=== PATIENT | male | born 1935 | race Caucasian/White ===

== ENCOUNTER 2016-11-12 16:53 | Inpatient (IN) | payer MEDICARE, BC ==
[~2016-11-12] VITALS: Wt 75.9 kg
[~2016-11-12 16:53] MED LIST: ASPIRIN 32325 MG/TAB PO; ASPIRIN 81M81 MG/TA2 PO; BACITRACIN TOPIC1 TU TOP; BACTRIM DS 8001 TAB PO; CENTRUM SILVER1 TA1 PO; COLACE 100100 MG/CAP PO; FISH OIL 1000MG1 CAP PO; FLOMAX 0.40.4 MG/CAP PO; HYDROCORTISONE30 G3 TP; IMDUR 30MG30 MG/TAB PO; LIPITOR 80MG80 MG PO; MIRALAX PA17 GM/Dose PO; NITROSTAT0.4 MG/TAB SL; PERCOCET 325 MG1 TA2 PO; PLAVIX 75MG TAB75 MG PO; TENORMIN 2525 MG/TAB PO; TYLENOL 325MG325 MG PO; ULTRAM 50MG TAB50 MG PO; ZESTRIL 5MG5 MG PO; ZOCOR 20MG20 MG PO; ZOFRAN8 MG PO
[2016-11-12 17:56] LABS: BASO # 0.1 (0.0-0.2); BASO % 0.7 % (0.0-2.0); EOS # 0.6 (0.0-0.7); EOS % 6.1 % (0-4.0); GRAN # 4.7 (1.4-6.5); GRAN % 51.5 % (42.2-75.2); HEMATOCRIT 38.6 % (42.0-52.0); HEMOGLOBIN 12.5 g/dl (13.5-18.0); LYMPH # 2.9 (1.2-3.4); LYMPH % 31.6 % (20.0-51.0); MEAN CELL VOLUME 95 fl (80.0-100.0); MEAN CORPUSCULAR HEMOGLOBIN 31 pg (27.0-31.0); MEAN CORPUSCULAR HGB CONC 32 g/dl (33.0-37.0); MEAN PLATELET VOLUME 10.8 fl (7.4-10.4); MONO # 0.9 (0.1-0.6); MONO % 9.9 % (1.7-9.3); PLATELET COUNT 198 K/mm3 (130-400); RED BLOOD COUNT 4.05 M/mm3 (4.20-5.60); REDCELL DISTRIBUTION WIDTH-CV 13.7 % (11.5-14.5); WHITE BLOOD COUNT 9.2 K/mm3 (4.8-10.8)
[2016-11-12 18:02] LABS: ADJUSTED CALCIUM 9.6 mg/dL (8.4-10.2); ALBUMIN 3.6 gm/dL (3.5-5.0); BILIRUBIN,TOTAL 0.7 mg/dL (0.0-1.0); CALCIUM 9.3 mg/dL (8.4-10.2); CREATININE, serum 0.99 mg/dL (0.66-1.25); POTASSIUM 4.5 mmol/L (3.4-5.0); TOTAL PROTEIN 6.9 gm/dL (6.4-8.2)
[2016-11-12 18:51] LABS: PH 5 (5-8); SQUAMOUS EPITHELIAL None Seen /hpf; URINE APPEARANCE Clear; URINE BACTERIA None Seen /hpf; URINE BILIRUBIN Negative (NEGATIVE); URINE BLOOD Negative (NEGATIVE); URINE COLOR Yellow; URINE GLUCOSE Negative (NEGATIVE); URINE KETONE Negative (NEGATIVE); URINE RBC None Seen /hpf; URINE UROBILINOGEN Negative (NEGATIVE); URINE WBC 0-2 /hpf
[2016-11-12] MEDS ORDERED: LIORESAL 1010 MG/TAB PO (20:52)
[2016-11-12] MEDS ORDERED: ZOLOFT 25MG25 MG PO (20:53)
[2016-11-12 21:25] VITALS: BP 118/70; PULSE 84; TEMP 98.9
[2016-11-12 23:55] VITALS: BP 149/71; PULSE 50; TEMP 98
[2016-11-13 04:09] VITALS: BP 146/94; PULSE 52; TEMP 98.5
[2016-11-13 08:46] VITALS: BP 149/71; PULSE 52; TEMP 97.5
[2016-11-13] MEDS ORDERED: NEURONTIN400 MG/CAP PO (10:39)
[2016-11-13] MEDS ORDERED: MAALOX MAX + ANT1 ML PO (10:42)
[2016-11-13 11:36] VITALS: BP 124/61; PULSE 57; TEMP 98
[2016-11-13 16:14] VITALS: BP 133/78; PULSE 76; TEMP 97.7
[2016-11-13 19:56] VITALS: BP 131/55; PULSE 64; TEMP 99.1
[2016-11-14 00:24] VITALS: BP 140/66; PULSE 54; TEMP 98.1
[2016-11-14 04:38] VITALS: BP 147/74; PULSE 58; TEMP 98.4
[2016-11-14 08:29] VITALS: BP 140/87; PULSE 55; TEMP 97.9
[2016-11-14] MEDS ORDERED: ZOLOFT 25MG25 MG PO (10:39)
[2016-11-14] MEDS ORDERED: LOVENOX 4040 MG/0.4 SQ (10:39)
[2016-11-14] MEDS ORDERED: LIORESAL 1010 MG/TAB PO (10:39)
[2016-11-14 10:44] VITALS: BP 140/87; PULSE 55; TEMP 97.9
[2016-11-14 12:39] VITALS: BP 157/72; PULSE 66; TEMP 98.1
== END 2016-11-14 15:13 | DRG 57 ==
LOC: COL.ER 16:53 → MEDICAL 19:17
PROVIDERS: Emergency Medicine
DX: I69.851 Hemiplegia and hemiparesis following other cerebrovascular disease affecting right dominant side (principal); I10 Essential (primary) hypertension; I25.10 Atherosclerotic heart disease of native coronary artery without angina pectoris; Z95.5 Presence of coronary angioplasty implant and graft
CPT/HCPCS: 99222-AI; 99232-AI; 99239; A9585; G0378; G8978-GP; G8979-GP; G8996-GN; G8997-GN; J1650; J7030

== ENCOUNTER 2016-11-14 11:44 | Inpatient (IN) | payer MEDICARE, BC ==
[~2016-11-14] VITALS: Ht 180.3 cm; Wt 78.6 kg
[~2016-11-14 11:44] MED LIST changes: +LIORESAL 1010 MG/TAB PO; +LOVENOX 4040 MG/0.4 SQ; +MAALOX MAX + ANT1 ML PO; +NEURONTIN400 MG/CAP PO; +ZOLOFT 25MG25 MG PO
[2016-11-14 15:22] VITALS: BP 151/73; PULSE 53; TEMP 98.1
[2016-11-14 17:35] VITALS: BP 151/73; BP 159/62; PULSE 53; PULSE 54; TEMP 97.9; TEMP 98
[2016-11-15 03:04] VITALS: BP 130/71; PULSE 47; TEMP 98.3
[2016-11-15 18:31] VITALS: BP 125/62; PULSE 58; TEMP 98.6
[2016-11-16 06:00] VITALS: BP 140/58; PULSE 50; TEMP 98.4
[2016-11-16 17:56] VITALS: BP 121/61; PULSE 59; TEMP 98.1
[2016-11-17 04:54] VITALS: BP 149/72; PULSE 47; TEMP 97.9
[2016-11-17 16:13] VITALS: BP 132/64; PULSE 56; TEMP 98.7
[2016-11-18 07:10] VITALS: BP 138/62; PULSE 51; TEMP 98.4
[2016-11-18 17:36] VITALS: BP 132/67; PULSE 60; TEMP 98
[2016-11-19 06:00] VITALS: BP 139/64; PULSE 50; TEMP 97.2
[2016-11-19 17:36] VITALS: BP 112/59; PULSE 60; TEMP 98.6
[2016-11-20 06:15] VITALS: BP 138/75; PULSE 46; TEMP 97.4
[2016-11-20 16:36] VITALS: BP 132/48; PULSE 55; TEMP 97.7
[2016-11-21 03:12] VITALS: BP 118/63; PULSE 52; TEMP 98.1
[2016-11-21 15:43] VITALS: BP 132/57; PULSE 58; TEMP 98.6
[2016-11-22 04:13] VITALS: BP 140/56; PULSE 50; TEMP 97.8
[2016-11-22 16:29] VITALS: BP 148/64; PULSE 79; TEMP 97.8
[2016-11-23 04:27] VITALS: BP 128/62; PULSE 75; TEMP 97.6
[2016-11-23 17:10] VITALS: BP 131/66; PULSE 60; TEMP 98
[2016-11-24 05:42] VITALS: BP 135/70; PULSE 46; TEMP 97.5
[2016-11-24 16:30] VITALS: BP 123/56; PULSE 56; TEMP 97
[2016-11-25 05:57] VITALS: BP 119/62; PULSE 48; TEMP 97.4
[2016-11-25 16:11] VITALS: BP 141/61; PULSE 59; TEMP 97
[2016-11-26 04:04] VITALS: BP 130/59; PULSE 47; TEMP 97.5
[2016-11-26 16:25] VITALS: BP 115/66; PULSE 53; TEMP 97.3
[2016-11-27 03:58] VITALS: BP 134/70; PULSE 84; TEMP 97.5
[2016-11-27 16:16] VITALS: BP 137/66; PULSE 59; TEMP 98.6
[2016-11-28 05:23] VITALS: BP 136/80; PULSE 53; TEMP 98.5
[2016-11-28 17:23] VITALS: BP 132/95; PULSE 52; TEMP 97.9
[2016-11-29 04:05] VITALS: BP 117/52; PULSE 47; TEMP 98.4
[2016-11-29 11:56] VITALS: BP 109/61; PULSE 53; TEMP 97.8
[2016-11-29 17:38] VITALS: BP 159/63; PULSE 60; TEMP 98.9
[2016-11-30 03:54] VITALS: BP 137/71; PULSE 48; TEMP 98.1
== END 2016-11-30 13:37 | disposition home health service (06) | DRG 948 ==
DX: R53.81 Other malaise (principal); I69.361 Other paralytic syndrome following cerebral infarction affecting right dominant side; I10 Essential (primary) hypertension; I69.391 Dysphagia following cerebral infarction; R13.10 Dysphagia, unspecified; I25.10 Atherosclerotic heart disease of native coronary artery without angina pectoris
CPT/HCPCS: 99222-AI; 99232-AI; 99239; J1650

== ENCOUNTER 2017-06-06 13:39 | Inpatient (IN) | payer MEDICARE, BC ==
[2017-06-06] VITALS (308 sets, daily range): BP systolic 95–115; BP diastolic 63–72; PULSE 72; TEMP 97.3–97.5; O2SAT 96–100
[~2017-06-06] VITALS: Ht 182.9 cm; Wt 77.2 kg
[2017-06-06] MEDS ORDERED: FLAGYL500 MG PO (14:06)
[2017-06-06] MEDS ORDERED: MIRALAX 255 GM255 GM PO (14:06)
[2017-06-06 14:46] LABS: HEMATOCRIT 41.7 % (42.0-52.0); MEAN CELL VOLUME 91 fl (80.0-100.0); MEAN CORPUSCULAR HEMOGLOBIN 31 pg (27.0-31.0); MEAN CORPUSCULAR HGB CONC 34 g/dl (33.0-37.0); MEAN PLATELET VOLUME 10.7 fl (7.4-10.4); PLATELET COUNT 217 K/mm3 (130-400); RED BLOOD COUNT 4.56 M/mm3 (4.20-5.60); REDCELL DISTRIBUTION WIDTH-CV 13.8 % (11.5-14.5); WHITE BLOOD COUNT 15.2 K/mm3 (4.8-10.8)
[2017-06-06 14:51] LABS: ADD PATHOLOGY DIFF REVIEW NO
[2017-06-06 15:05] LABS: BAND 3 % (0-10); NEUTROPHILS 73 % (42.0-75.2); PLATELET ESTIMATE NORMAL (NORMAL); TOTAL CELLS COUNTED 100
[2017-06-06 15:07] LABS: ADJUSTED CALCIUM 9.2 mg/dL (8.4-10.2); ALANINE AMINOTRANSFERASE 26 U/L (21-72); ALBUMIN 3.8 gm/dL (3.5-5.0); ALKALINE PHOSPHATASE 132 U/L (50-136); ANION GAP 11 mmol/L (7-16); BILIRUBIN,TOTAL 1.3 mg/dL (0.0-1.0); BLOOD UREA NITROGEN 20 mg/dL (9-20); CARBON DIOXIDE 23 mmol/L (22-30); CHLORIDE 101 mmol/L (98-107); CREATININE, serum 1.19 mg/dL (0.66-1.25); GLUCOSE 105 mg/dL (74-106); LIPASE 61 U/L (23-300); POTASSIUM 4.1 mmol/L (3.4-5.0); SODIUM 136 mmol/L (137-145); TOTAL PROTEIN 6.8 gm/dL (6.4-8.2)
[2017-06-06 15:17] LABS: TROPONIN-I < 0.012 ng/mL (0.000-0.034)
[2017-06-06 15:48] LABS: PH 5 (5-8); SQUAMOUS EPITHELIAL 0-2 /hpf; URINE APPEARANCE Clear; URINE BACTERIA None Seen /hpf; URINE BILIRUBIN Negative (NEGATIVE); URINE BLOOD Negative (NEGATIVE); URINE COLOR Yellow; URINE GLUCOSE Negative (NEGATIVE); URINE KETONE Negative (NEGATIVE); URINE RBC 0-2 /hpf; URINE UROBILINOGEN Negative (NEGATIVE)
[2017-06-06] MEDS ORDERED: MULTIPLE VITAMI1 CAP PO (17:54)
[2017-06-06] MEDS ORDERED: NITROSTAT0.4 MG/TAB SL (17:54)
[2017-06-07] VITALS (433 sets, daily range): BP systolic 94–149; BP diastolic 55–73; PULSE 62–74; TEMP 98.1–98.3; O2SAT 90–100
[2017-06-07 05:53] LABS: ADD PATHOLOGY DIFF REVIEW NO
[2017-06-07 05:58] LABS: MEAN CELL VOLUME 95 fl (80.0-100.0); MEAN CORPUSCULAR HGB CONC 32 g/dl (33.0-37.0); MEAN PLATELET VOLUME 10.7 fl (7.4-10.4); PLATELET COUNT 172 K/mm3 (130-400); RED BLOOD COUNT 3.72 M/mm3 (4.20-5.60); REDCELL DISTRIBUTION WIDTH-CV 14.1 % (11.5-14.5); WHITE BLOOD COUNT 9.9 K/mm3 (4.8-10.8)
[2017-06-07 05:59] LABS: HEMATOCRIT 35.5 % (42.0-52.0); HEMOGLOBIN 11.5 g/dl (13.5-18.0); MEAN CORPUSCULAR HEMOGLOBIN 31 pg (27.0-31.0)
[2017-06-07 06:11] LABS: CALCIUM 7.9 mg/dL (8.4-10.2); CREATININE, serum 0.96 mg/dL (0.66-1.25); MAGNESIUM 1.9 mg/dL (1.6-2.3); POTASSIUM 3.7 mmol/L (3.4-5.0)
[2017-06-07 06:20] LABS: BAND 14 % (0-10); EOSINOPHIL 1 % (0-4); NEUTROPHILS 60 % (42.0-75.2); TOTAL CELLS COUNTED 100
[2017-06-07 06:21] LABS: PLATELET ESTIMATE NORMAL (NORMAL)
[2017-06-08 00:05] VITALS: BP 118/72; PULSE 70; TEMP 98.8
[2017-06-08 10:22] VITALS: BP 116/73; PULSE 61; TEMP 98.3
== END 2017-06-08 16:00 | disposition home health service (06) | DRG 690 ==
LOC: COL.ER 13:39 → ICU 17:01 → SURG 06-07 12:40
PROVIDERS: Emergency Medicine; Internal Medicine; Urology
PROC: 0T778DZ Dilation of Left Ureter with Intraluminal Device, Via Natural or Artificial Opening Endoscopic (ICD-10-PCS; principal; 2017-06-06 17:00)
DX: N13.6 Pyonephrosis (principal); N20.0 Calculus of kidney; I10 Essential (primary) hypertension; I25.10 Atherosclerotic heart disease of native coronary artery without angina pectoris; Z95.5 Presence of coronary angioplasty implant and graft; Z86.73 Personal history of transient ischemic attack (TIA), and cerebral infarction without residual deficits
CPT/HCPCS: 99223-AI; 99232-AI; 99239; A4315; C1769; C2617; J0690; J0696; J1650; J2270; J2405; J2543; J2704; J3010; J7030; J7050; Q9967

== ENCOUNTER 2017-06-20 10:03 | Day surgery (SDC) | payer MEDICARE, BC ==
[~2017-06-20] VITALS: Ht 182.9 cm; Wt 72.7 kg
[~2017-06-20 10:03] MED LIST changes: +FLAGYL500 MG PO; +MIRALAX 255 GM255 GM PO; +MULTIPLE VITAMI1 CAP PO
[2017-06-20] MEDS ORDERED: ASPIRIN 32325 MG/TAB PO (12:06)
[2017-06-20 12:09] VITALS: BP 172/69; PULSE 51; TEMP 98.1
[2017-06-20 13:25] VITALS: BP 158/57; PULSE 56; TEMP 98.3
[2017-06-20 13:40] VITALS: BP 162/61; PULSE 56
[2017-06-20 13:55] VITALS: BP 148/60; PULSE 64
[2017-06-20 14:10] VITALS: BP 142/62; PULSE 64
[2017-06-20] MEDS ORDERED: NORCO 325 MG-51 TAB PO (15:21)
[2017-06-20] MEDS ORDERED: SENOKOT S 50 MG1 TAB PO (15:22)
[2017-06-20] MEDS ORDERED: PYRIDIUM 100MG100 MG PO (15:24)
== END 2017-06-20 16:00 | disposition home or self-care (01) ==
LOC: SDCO 10:03
DX: N20.2 Calculus of kidney with calculus of ureter (principal); I10 Essential (primary) hypertension; I25.10 Atherosclerotic heart disease of native coronary artery without angina pectoris; M19.90 Unspecified osteoarthritis, unspecified site; Z95.5 Presence of coronary angioplasty implant and graft; Z96.641 Presence of right artificial hip joint; Z79.01 Long term (current) use of anticoagulants; Z86.73 Personal history of transient ischemic attack (TIA), and cerebral infarction without residual deficits
CPT/HCPCS: C1769; C2617; J0690; J1100; J2405; J2704; J3010; Q9967

== ENCOUNTER 2017-12-15 16:36 | Emergency (ER) | payer MEDICARE, BC ==
[~2017-12-15] VITALS: Ht 182.9 cm; Wt 75.0 kg
[~2017-12-15 16:36] MED LIST changes: +NORCO 325 MG-51 TAB PO; +PYRIDIUM 100MG100 MG PO; +SENOKOT S 50 MG1 TAB PO
[2017-12-15 16:54] VITALS: TEMP 98.6
[2017-12-15 18:28] VITALS: BP 124/78; PULSE 80
== END 2017-12-15 18:28 | disposition home or self-care (01) ==
LOC: COL.ER 16:36
DX: H11.31 Conjunctival hemorrhage, right eye (principal); Z79.82 Long term (current) use of aspirin; Z79.02 Long term (current) use of antithrombotics/antiplatelets

== ENCOUNTER 2019-03-11 06:22 | Emergency (ER) | payer MEDICARE, BC ==
[~2019-03-11] VITALS: Ht 182.9 cm; Wt 80.5 kg
[2019-03-11 06:25] VITALS: TEMP 97.2
[2019-03-11] MEDS ORDERED: CENTRUM SILVER1 TAB (07:00)
[2019-03-11 08:59] VITALS: BP 126/81; PULSE 75
== END 2019-03-11 09:00 | disposition home or self-care (01) ==
LOC: COL.ER 06:22
DX: R04.0 Epistaxis (principal); I10 Essential (primary) hypertension; E78.5 Hyperlipidemia, unspecified; Z79.02 Long term (current) use of antithrombotics/antiplatelets; Z79.82 Long term (current) use of aspirin